=== PATIENT | female | born 1980 | race Asian ===

== ENCOUNTER 2017-06-01 09:25 | Emergency (ER) | payer OTHER ==
[2017-06-01 09:32] VITALS: BP 129/89; PULSE 78; TEMP 36.8; O2SAT 100
[2017-06-01] MEDS ORDERED: AMOX875T PO (10:00)
--- NOTE | 2017-06-01 10:08 | EMERGENCY ROOM VISIT NOTE ---
History First contact with patient: 09:38 Chief Complaint: BITE Stated Complaint: DOG BITE History of Present Illness The patient is a 37 year old female who presents to the Emergency Room with concerns after being bitten by an unknown dog yesterday. The patient is not specific at all regarding the nature of the events. She will not discuss where this incident occurred, or anything further about the dog. When asked where the wound is located, she reports on the front of her right leg, but refuses to get into a gown. The patient reports that she speaks Mandarin Polish, but is also refusing interpretation services. Upon further questioning regarding the nature of the wound, she reports that she has sensitive skin and is concerned that she will get infected. When asked if there was any open wounds of the skin , she does not answer. The patient denies any pain. The patient also is uncertain of her last tetanus immunization. Review of Systems Review of systems could not be performed because of issues as discussed in the previous section Past Medical/Surgical History Medical Problems: (1) Medical history unknown Surgical Problems: (1) Unknown surgical history Family History Unknown Social History Smoking Status: Never Smoker Alcohol Use: none Current/Historical Medications Scheduled Amoxicillin & Pot Clavulanate (Augmentin 875-125 mg), 1 TAB PO BID Physical Exam Vital Signs Date Time Temp Pulse Resp B/P (MAP) Pulse Ox O2 Delivery O2 Flow Rate FiO2 06/01/17 09:32 36.8 78 20 129/89 100 Room Air Physical Exam CONSTITUTIONAL: Healthy and well nourished. Patient does not appear in any acute distress. HEENT: Normocephalic, atraumatic. Pupils equal, round and reactive. No scleral icterus or conjunctival injection. MUSCULOSKELETAL: Patient ambulates to her examination room without any obvious distress. INTEGUMENTARY: When asked where the patient was bitten, she reports on her right front leg. She did pull up her pants leg, and caron a [place]om[place] indian tribe around the mid anterior leg region. Examination does not show any abrasions, ecchymosis, erythema, lacerations or puncture wounds. Medical Decision & Procedures ED Course Limited patient history and physical exam were performed, as further described in the HPI section. I did ask the patient to show me the wound, and she pulled up her pants on the right leg. She caron a chick[place] indian tribe around the anterior leg. As indicated previously, there are no skin changes, ecchymosis, lacerations or puncture wounds. The patient does appear to speak decent Latvian, and refused interpretation services. I explained to the patient that without a wound, she does not need any antibiotic treatment. She reports that she has a history of sensitive skin, and [place] country she would have gotten a shot. The patient was advised that I could give her prescription for an antibiotic, although this would be useless given her normal physical exam findings. In case she has a dog bite elsewhere as she is not revealing, she will be provided a prescription for Augmentin twice daily 5 days. The patient denies any other injuries except for her leg, which again is normal on exam. She was instructed to follow -up with her PCP as needed with any further concerns. Medical Decision Blood Pressure Screening Patient's blood pressure: Normal blood pressure Impression Primary Impression: Dog bite Departure Information Dispostion Home / Self-Care Prescriptions Amoxicillin & Pot Clavulanate (Augmentin 875-125 mg) 1 Tab Tab 1 TAB PO BID for 5 Days, #10 TAB Prov: Reese Shahid PA 06/01/17 Referrals No Doctor, Assigned (PCP) Forms HOME CARE DOCUMENTATION FORM, IMPORTANT VISIT INFORMATION Patient Instructions [facility] [employer] [facility] Additional Instructions Complete all Augmentin antibiotics as prescribed. Follow-up with your family doctor as needed for any further concerns. Problem Qualifiers Primary Impression: Dog bite Encounter type: initial encounter Qualified Codes: W54.0XXA - Bitten by dog , initial encounter
== END 2017-06-01 10:33 | disposition home or self-care (01) ==
LOC: C.EDB 09:28 → EDBD 09:28 → C.EDC 10:33
DX: S89.81XA Other specified injuries of right lower leg, initial encounter (principal); W54.0XXA Bitten by dog, initial encounter; Y92.9 Unspecified place or not applicable

== ENCOUNTER 2017-06-30 14:06 | Emergency (ER) | payer OTHER ==
[2017-06-30 14:19] VITALS: TEMP 37.1
--- NOTE | 2017-06-30 15:14 | EMERGENCY ROOM VISIT NOTE ---
History Report prepared by Alysa: Venkata Georges Under the Supervision of: Dr. Keiko Ash D.O. First contact with patient: 15:12 Chief Complaint: HEAD PAIN Stated Complaint: HIT HEAD, HEAD PAIN History of Present Illness The patient is a 37 year old female who presents to the Emergency Room with complaints of intermittent head pain that started around midnight, 15 hours ago. She states that she is not sure if she hit her head on something while asleep, but overnight she woke up with intermittent pain on the back of the right side of her head as well as the left side of her head. The patient says that the pain does not radiate anywhere besides those 2 spots on the back of her head. She notes that in the morning she felt okay, but she has had the same intermittent head pain. The patient adds that she had a 10 to 15 second episode of right hand numbness this morning, but ever since that episode her hand has been fine. She denies any dizziness, neck pain, nausea, vomiting, recent illnesses, fevers, chills or cough. The patient says that she has not had any known recent major traumas or falls. She notes no history of migraines or tension headaches. She also notes no recent changes in her diet or activity, and adds that she has been drinking enough water. The patient does not take any daily medications. She says that she tried a Croatian medication earlier today for her headache, but does not recall what the medication was and the medication did not help her pain. Source of History: patient Onset: Around 15 hours ago Position: head Quality: other (pain) Timing: other (intermittent) Associated Symptoms: + numbness (right hand episode), No fevers, No chills, No cough, No neck pain, No nausea, No vomiting Note: Denies dizziness. Review of Systems See HPI for pertinent positives & negatives. A total of 10 systems reviewed and were otherwise negative. Past Medical & Surgical Medical Problems: (1) Medical history unknown Surgical Problems: (1) Unknown surgical history Family History No pertinent family history Social History Smoking Status: Never Smoker Alcohol Use: none Drug Use: none Marital Status: single Current/Historical Medications Scheduled PRN [welsh medicine], 3 TABS PO DAILY PRN for Migraine Allergies Coded Allergies: No Known Allergies (Unverified , 06/30/17) Physical Exam Vital Signs Date Time Temp Pulse Resp B/P (MAP) Pulse Ox O2 Delivery O2 Flow Rate FiO2 06/30/17 17:28 68 18 120/79 99 06/30/17 14:19 37.1 79 18 119/66 99 Room Air Physical Exam GENERAL: alert, well appearing, well nourished, no distress, non-toxic EYE EXAM: normal conjunctiva, PERRL and EOM's grossly intact OROPHARYNX: no exudate, no erythema, lips, buccal mucosa, and tongue normal and mucous membranes are moist NECK: supple, no nuchal rigidity, no adenopathy, non-tender LUNGS: Clear to auscultation. Normal chest wall mechanics, no w/r/r HEART: no murmurs, S1 normal and S2 normal ABDOMEN: abdomen soft, non-tender, normo-active bowel sounds, no masses, no rebound or guarding. BACK: Back is symmetrical on inspection and there is no deformity, no midline tenderness, no CVA tenderness. SKIN: no rashes and no bruising UPPER EXTREMITIES: upper extremities are grossly normal. Full range of motion, normal pulses, normal sensory exam, normal strength b/l. LOWER EXTREMITIES: No pitting edema. Full range of motion, normal pulses. NEURO EXAM: Normal sensorium, cranial nerves II-XII grossly intact, normal speech, no gross weakness of arms, no gross weakness of legs. No drift. Finger to nose intact. Gross sensation intact. Medical Decision & Procedures Medications Administered Medications (Trade) Dose Ordered Sig/Alan Route Start Time Stop Time Status Last Admin Dose Admin Acetaminophen (Tylenol Tab) 1,000 mg NOW STAT PO 06/30/17 15:28 06/30/17 15:29 DC 06/30/17 15:52 1,000 MG ED Course 1515: The patient was evaluated in room B7. A complete history and physical exam was performed. 1528: Tylenol Tab 1000 mg PO. 1641: Upon reevaluation, the patient is feeling better. I discussed the findings and the treatment plan with the patient. She verbalizes agreement and understanding. She was discharged home. Medical Decision Differential Diagnosis includes but is not limited to headache, tension headache , cluster headache, migraine, subarachnoid hemorrhage, meningitis, mass, central venous thrombus, concussion, trauma and epidural/subdural hemorrhage. Patient well-appearing here with a normal nonfocal neuro exam. Discussed with patient possible differential diagnosis, discussed my recommendation for neuro and imaging given the patient has no prior history of headaches, and was concerned enough regarding this headache to come to the emergency room. Patient refused CT head and was agreeable with trying Tylenol here. Patient continued to be ambulatory here. Patient with no family doctor locally, we asked case management to try and help establish a local family doctor for the patient for other routine health screening and follow-up. Discussed with patient symptoms to watch and return for, she verbalized understanding was agreeable with plan. Medication Reconcilliation Current Medication List: was personally reviewed by me Blood Pressure Screening Patient's blood pressure: Normal blood pressure Impression Primary Impression: Headache Scribe Attestation The scribe's documentation has been prepared under my direction and personally reviewed by me in its entirety. I confirm that the note above accurately reflects all work, treatment, procedures, and medical decision making performed by me. Departure Information Dispostion Home / Self-Care Referrals No Doctor, Assigned (PCP) Patient Instructions My [facility] Additional Instructions Please monitor your symptoms for any changes. You may try over the counter tylenol (acetaminophen) or motrin (ibuprofen) for headaches. If you have any recurrent or worsening headaches, develop vision changes, dizziness, nausea or vomiting, feel unsteady when you walk, develop fevers, you have any other new concerns, please return the emergency room. Please establish a local family doctor to address your other routine health concerns and screening tests. Problem Qualifiers Primary Impression: Headache Headache type: unspecified Headache chronicity pattern: acute headache Intractability: not intractable Qualified Codes: R51 - Headache
[2017-06-30] MEDS ORDERED: ACETAMINOPHEN 500 MG TAB PO STA (15:28)
[2017-06-30] MEDS ORDERED: [UNRECOGNIZED DRUG - OTHER] PO (15:32)
[2017-06-30 17:28] VITALS: BP 120/79; PULSE 68; O2SAT 99
== END 2017-06-30 17:30 | disposition home or self-care (01) ==
LOC: C.EDB 14:08
DX: R51 Headache (principal)